=== PATIENT | male | born 1980 | race Caucasian/White ===

== ENCOUNTER → 2024-12-11 07:35 | Outpatient (REF) | payer OTHER, SELFPAY | LOC: WOUND 07:35 | PROVIDERS: ATTENDING PHYSICIAN Surgery | DX: L97.222 Non-pressure chronic ulcer of left calf with fat layer exposed (principal); I87.2 Venous insufficiency (chronic) (peripheral); Z91.81 History of falling; Z87.820 Personal history of traumatic brain injury; W56 Contact with nonvenomous marine animal | CPT/HCPCS: 11042; 11045; 99204 ==

== ENCOUNTER → 2024-12-18 13:12 | Outpatient (REF) | payer OTHER, SELFPAY | LOC: WOUND 13:12 | PROVIDERS: ATTENDING PHYSICIAN Surgery | DX: L97.222 Non-pressure chronic ulcer of left calf with fat layer exposed (principal); I87.2 Venous insufficiency (chronic) (peripheral); W56 Contact with nonvenomous marine animal; Z87.820 Personal history of traumatic brain injury; Z91.81 History of falling | CPT/HCPCS: 99213 ==

== ENCOUNTER → 2024-12-30 10:59 | Outpatient (REF) | payer OTHER, SELFPAY | LOC: RAD 10:59 | PROVIDERS: ATTENDING PHYSICIAN Surgery; FAMILY PHYSICIAN Internal Medicine Geriatric Medicine | DX: L97.222 Non-pressure chronic ulcer of left calf with fat layer exposed (principal); I87.2 Venous insufficiency (chronic) (peripheral) | CPT/HCPCS: 93971 ==

== ENCOUNTER → 2025-01-08 11:01 | Outpatient (REF) | payer OTHER, SELFPAY | LOC: WOUND 11:01 | PROVIDERS: ATTENDING PHYSICIAN Surgery | DX: L97.222 Non-pressure chronic ulcer of left calf with fat layer exposed (principal); I87.2 Venous insufficiency (chronic) (peripheral); Z91.81 History of falling; Z87.820 Personal history of traumatic brain injury; W56.41XA Bitten by shark, initial encounter | CPT/HCPCS: 99213 ==